=== PATIENT | male | born 1990 | race Caucasian/White ===

== ENCOUNTER 2021-11-21 20:05 | Emergency (ER) | payer OTHER, SELFPAY ==
[2021-11-21 20:12] VITALS: BP 116/94; PULSE 122; RESP 18; TEMP 36.6; O2SAT 100
--- NOTE | 2021-11-21 20:18 | ED.GENADULT ---
HPI - General Adult General Chief complaint: Overdose Stated complaint: overdose Time Seen by Provider: 11/21/21 20:15 History of Present Illness HPI narrative: 31-year-old male presented the emergency department by EMS for evaluation after an accidental fentanyl overdose. Patient does not often use fentanyl and did use fentanyl this evening. Patient does admit to prior history of opiate use. Patient became unresponsive and required multiple doses of Narcan. Upon arrival to the emergency room and patient is alert oriented and is declining work-up and requesting to sign out AMA. Patient was able to state back in his own words the risk of leaving and the Narcan wearing off. Patient was able to express that he is aware that he may if his Narcan wears off. Patient states that he does have Narcan at his home. Patient declined any medical work-up and any physical exam. Patient was very polite and cooperative but is emphatic about wanting to be discharged to home. Review of Systems Review of Systems: Patient denies any complaints Exam Narrative: Patient declined a physical exam Course Course Emergency Course: Patient is alert and oriented and is medically competent to decide to leave AMA. Patient was able to express in his own words the risk of dying if he leaves AMA. Patient also expressed that he does have Narcan at the house. Patient was encouraged to stop using opiates. Patient was also strongly encouraged to not use any more tonight. Vital Signs Vital signs: Vital Signs Temperature 97.9 F 11/21/21 20:12 Pulse Rate 122 H 11/21/21 20:12 Respiratory Rate 18 11/21/21 20:12 Blood Pressure 116/94 H 11/21/21 20:12 Pulse Oximetry 100 11/21/21 20:12 Temperature 97.9 F 11/21/21 20:12 Pulse Rate 122 H 11/21/21 20:12 Respiratory Rate 18 11/21/21 20:12 Blood Pressure 116/94 H 11/21/21 20:12 Pulse Oximetry 100 11/21/21 20:12 Medical Decision Making Vital Signs Vital Signs: Vital Signs Temperature 97.9 F 11/21/21 20:12 Pulse Rate 122 H 11/21/21 20:12 Respiratory Rate 18 11/21/21 20:12 Blood Pressure 116/94 H 11/21/21 20:12 Pulse Oximetry 100 11/21/21 20:12 Temperature 97.9 F 11/21/21 20:12 Pulse Rate 122 H 11/21/21 20:12 Respiratory Rate 18 11/21/21 20:12 Blood Pressure 116/94 H 11/21/21 20:12 Pulse Oximetry 100 11/21/21 20:12 Discharge Plan Discharge Clinical Impression: Drug overdose Qualifiers: Encounter type: initial encounter Injury intent: accidental or unintentional Qualified Code(s): T50.901A - Poisoning by unspecified drugs, medicaments and biological substances, accidental (unintentional), initial encounter Patient Disposition: Left Against Medical Advice Condition: Stable Instructions: Adult Overdose (ED) Additional Instructions: You declined to stay for a medical work-up. Please do not use any opiates tonight. Please seek professional help for your substance abuse. If you have any worsening symptoms or if you have any questions or concerns then please call or return to the emergency department. you are welcome at the ED at any time to complete your medical work-up.
--- NOTE | 2021-11-21 20:20 | PC.NURSE ---
Pt requesting to leave. States Im fine, I just overdosed. I have Narcan at the place I'm staying at. I dont want a bill. EDP notified.
== END 2021-11-21 20:25 | disposition left against medical advice (07) ==
LOC: ANHED 20:57
PROVIDERS: Emergency Provider Emergency Medicine
DX: T40.411A Poisoning by fentanyl or fentanyl analogs, accidental (unintentional), initial encounter (principal)
CPT/HCPCS: 99281

== ENCOUNTER 2022-01-11 19:13 | Emergency (ER) | payer OTHER, SELFPAY ==
[2022-01-11 19:30] VITALS: BP 112/85; PULSE 95; RESP 20; TEMP 37.1; O2SAT 98
[2022-01-11 20:08] LABS: Basophils Absolute Auto 0.1 K/mm3 (0.0-0.1); Basophils Percent Auto 1.1 % (0.2-1.2); Eosinophils Absolute Auto 0.1 K/mm3 (0-0.3); Eosinophils Percent Auto 0.6 % (0-4.4); Hemoglobin 14.8 g/dL (14.0-18.0); Immature Granulocyte Absolute 0.04 K/mm3 (0.00-0.031); Immature Granulocyte Percent A 0.4 % (0-0.5); Lymphocytes Absolute Auto 1.85 K/mm3 (0.9-3.2); Lymphocytes Percent Auto 18.5 % (18.3-44.2); Mean Corpuscular HGB Conc 34.4 g/dl (32-36); Mean Platelet Volume 8.4 fl (7.4-10.4); Monocytes Absolute Auto 0.7 K/mm3 (0.1-0.6); Monocytes Percent Auto 6.9 % (2.6-8.5); Neutrophils Absolute Auto 7.2 K/mm3 (1.3-6.7); Neutrophils Percent Auto 72.5 % (45.5-73.1); Platelet Count Result 339 k/mm3 (150-375); Red Blood Count 4.78 M/mm3 (4.6-6.20); Red Cell Distribution Width 12.7 % (11.5-14.5)
[2022-01-11 20:15] LABS: Add Urine Microscopic? YES; Appearance Urine Cloudy (Clear); Bacteria Urine Trace /hpf; Bilirubin Urine Negative (Negative); Color Urine Yellow (Yellow); Glucose Urine UA Negative (Negative); Ketones Urine Trace mg/dL (Negative); Leukocyte Esterase Ur Trace LEU/UL (Negative); Mucus Urine Heavy /lpf; Nitrate Urine Negative (Negative); Protein Urine Negative (Negative); RBC Urine 0-2 /hpf (0-2); Specific Grav Ur 1.018 (1.001-1.035); Squamous Epithelial Cell Urine Few /hpf (Few); Transitional Epi Cells Urine Rare /hpf (None Seen)
[2022-01-11 20:18] LABS: Ethanol < 10 mg/dL (<10)
[2022-01-11 20:23] LABS: Amphetamine Screen Urine Negative (Negative); Barbiturate Screen Urine Negative (Negative); Benzodiazepines Screen Urine Negative (Negative); Blood Urine Negative (Negative); Cannabinoid Screen Urine Positive (Negative); Cocaine Screen Urine Negative (Negative); Methadone Screen Urine Negative (Negative); Opiate Screen Urine Negative (Negative); Phencyclidine Screen Urine Negative (Negative)
[2022-01-11 20:31] LABS: Alanine Aminotransferase 46 U/L (4-50); Albumin Level 4.2 g/dL (3.5-5.1); Alkaline Phosphatase 67 U/L (38-126); Anion Gap 8 mmol/L (8-16); Aspartate Amino Transferase 26 U/L (17-59); Bilirubin,Total 1.5 mg/dL (0.2-1.3); Blood Urea Nitrogen 9 mg/dL (9-20); Calcium 8.8 mg/dL (8.4-10.2); Carbon Dioxide 25 mmol/L (22-30); Chloride 106 mmol/L (98-107); Estimated CRCL calculation 127 ml/min; Estimated Glomerular Filt Rate > 60; Glucose 91 mg/dL (65-110); Potassium 3.5 mmol/L (3.4-5.0); Sodium 139 mmol/L (137-145)
--- NOTE | 2022-01-11 20:46 | PC.NURSE ---
Contacted [facility] at this time, spoke with Lyssa. Will send somebody to ED to evaluate patient shortly.
[2022-01-11 20:54] LABS: SARS-CoV-2 RNA PCR Negative
[2022-01-11 21:01] LABS: Thyroid Stimulating Hormone 0.572 uIU/mL (0.465-4.680)
--- NOTE | 2022-01-11 22:07 | ED.PSYCH ---
HPI - Psych General Chief Complaint: Psychiatric Symptoms Stated Complaint: walking all night , SI Time Seen by Provider: 01/11/22 19:21 History of Present Illness HPI Narrative: Patient is a 31-year-old male who presents ER with suicidal ideation. Patient reports he is been homeless and he has been walking around. He has been unable to sleep due to restlessness and being concerned he will be arrested for being on private property. Patient has history of fentanyl use and history of schizophrenia. He takes risperidone for schizophrenia with last dose yesterday. Reports he is not taking it daily like he is supposed to and takes it approximately every other day. He is not hearing voices at this time. He reports he is feeling extremely depressed and like he does not want to live. No active plan to take his own life. Review of Systems Review of Systems: All systems reviewed & are unremarkable except as noted in HPI and below Constitutional: Constitutional: Denies chills, Denies fever(s) and Denies weakness ENT: Denies nasal congestion and Denies sore throat Cardiovascular: Cardiovascular: Denies chest pain, Denies rapid heart rate and Denies radiating jaw, neck or arm pain Respiratory: Respiratory: Denies cough and Denies dyspnea Gastrointestinal: Gastrointestinal: Denies abdominal pain, Denies diarrhea, Denies nausea and Denies vomiting Neurologic: Denies headache(s), Denies focal weakness and Denies numbness Psychiatric: Psychiatric: Denies anxiety, Reports depression, Denies homicidal ideation and Denies suicidal ideation Comments: Denies auditory/visual hallucinations. PMFSH Past Medical History Medical History (Updated 01/12/22 @ 03:04 by Pramod Mccoy MD) Schizophrenia Surgical History Surgical History (Updated 01/11/22 @ 23:08 by Pramod Mccoy MD) No pertinent past surgical history Social History Social History (Updated 01/11/22 @ 23:11 by Pramod Mccoy MD) Substance use type: other Other substance usage details: Fentanyl Exam Narrative: GENERAL: Well-appearing, well-nourished, and in no acute distress. HEAD: Normocephalic, atraumatic. EYES: PERRL and EOMI. NECK: Supple. CHEST: Clear to auscultation. No respiratory distress. HEART: Regular rate and rhythm. Normal peripheral pulses. ABDOMEN: Soft, nontender, nondistended. EXTREMITIES: Normal range of motion. No edema. SKIN: Warm, dry, no rash. NEURO: Alert and oriented x3. PSYCH: Flat affect, reports depressed mood and suicidal ideation without plan. Not actively responding to internal stimuli. Course Reevaluation(s) Reevaluation #1: Patient resting comfortably. Cooperative. Medically cleared for crisis evaluation at 2032. They have been out here to see him and patient has decided to be voluntary for psychiatric placement. Date: 01/11/22 Time: 23:11 Reevaluation #2: Accepted to [facility] by Dr. Fontanez. Date: 01/12/22 Time: 03:03 Vital Signs Vital signs: Vital Signs Temperature 98.8 F 01/11/22 19:30 Pulse Rate 95 01/11/22 19:30 Respiratory Rate 20 01/11/22 19:30 Blood Pressure 112/85 01/11/22 19:30 Pulse Oximetry 98 01/11/22 19:30 Temperature 98.6 F 01/12/22 00:30 Pulse Rate 89 01/12/22 00:30 Respiratory Rate 20 01/12/22 00:30 Blood Pressure 109/69 01/12/22 00:30 Pulse Oximetry 98 01/12/22 00:30 MDM - Psych Lab Data Result diagrams: 01/11/22 19:55 01/11/22 19:55 Labs: Lab Results 01/11/22 01/11/22 01/11/22 Range/Units 19:55 19:55 19:55 WBC 10.0 (4.5-10.0) K/mm3 RBC 4.78 (4.6-6.20) M/mm3 Hgb 14.8 (14.0-18.0) g/dL Hct 43.0 (42.0-52.0) % MCV 90.0 (80-100) fl MCH 31.0 (26-34) pg MCHC 34.4 (32-36) g/dl RDW 12.7 (11.5-14.5) % Plt Count 339 (150-375) k/mm3 MPV 8.4 (7.4-10.4) fl Immature Gran % (Auto) 0.4 (0-0.5) % Neut % (Auto) 72.5 (45.5-73.1) % Lymph % (Auto) 18.5 (18.3-44.2) %
--- NOTE | 2022-01-11 22:57 | PC.NURSE ---
Crisis in ED at this time to evaluate pt.
--- NOTE | 2022-01-11 23:08 | PC.NURSE ---
Per crisis telephone answering service operator, pt to sign voluntary and she will attempt to find placement for him. ED MD notified and updated.
[2022-01-12 00:30] VITALS: BP 109/69; PULSE 89; RESP 20; TEMP 37; O2SAT 98
--- NOTE | 2022-01-12 01:08 | PC.NURSE ---
Spoke with [facility] at this time, request for full chart to be faxed to [phone].
--- NOTE | 2022-01-12 01:18 | PC.NURSE ---
Chart faxed to [facility] at this time.
--- NOTE | 2022-01-12 01:41 | PC.NURSE ---
Pt speaking with [facility] directly at this time per facility request.
--- NOTE | 2022-01-12 02:43 | PC.NURSE ---
This RN spoke with Suzy at [facility]. Pt accepted for inpt. psych admission. She reports her charge nurse will call back for report and provide bed number at that time.
--- NOTE | 2022-01-12 02:44 | PC.NURSE ---
Pt medically cleared by ED MD Dr. Mccoy at approx. 2039.
--- NOTE | 2022-01-12 04:04 | PC.NURSE ---
Ricarda, Behavioral health RN at [facility], reports she is awaiting chart from intake unit, then will be calling us with bed assignment. ED RN Summer updated.
--- NOTE | 2022-01-12 04:41 | PC.NURSE ---
Nurse to nurse report at this time with Ricarda at [facility]. Facility would like a call when EMS arrives to ED to transport pt. .
--- NOTE | 2022-01-12 04:44 | PC.NURSE ---
EMS transport to [facility] scheduled for 0700 at this time.
[2022-01-12 06:30] VITALS: BP 114/83; PULSE 98; RESP 16; O2SAT 99
--- NOTE | 2022-01-12 07:27 | PC.NURSE ---
EMS arrived for pt for transfer to [facility]. Pt belongings given to ems.
== END 2022-01-12 07:30 ==
PROVIDERS: Emergency Provider Emergency Medicine
DX: R45.851 Suicidal ideations (principal); F32.A Depression, unspecified; F20.9 Schizophrenia, unspecified; Z20.822 Contact with and (suspected) exposure to COVID-19; Z59.00 Homelessness unspecified
CPT/HCPCS: 36415; 80053; 80307; 81001; 84443; 85025; 87086; 87088; 99285; C9803; U0003; U0005